=== PATIENT | female | born 1990 | race Caucasian/White ===

== ENCOUNTER 2017-08-26 16:57 | Emergency (ER) | payer OTHER ==
[~2017-08-26] VITALS: Ht 162.6 cm; Wt 97.5 kg
[~2017-08-26 16:57] MED LIST: AMOX1TAB12 PO; CORTEF20 MG PO; INTESTINEX1 CA1 PO; PROVENTIL S1 ML/5 MG; XOPENEX HFA15 GM IH; ZANTAC150 M3 PO
== END 2017-08-26 21:34 | disposition home or self-care (01) ==
LOC: ER 16:57
DX: L02.415 Cutaneous abscess of right lower limb (principal)

== ENCOUNTER 2017-08-28 08:28 | Emergency (ER) | payer OTHER ==
[~2017-08-28] VITALS: Ht 162.6 cm; Wt 95.3 kg
== END 2017-08-28 15:53 | disposition home or self-care (01) ==
LOC: ER 08:28
DX: K52.9 Noninfective gastroenteritis and colitis, unspecified (principal)

== ENCOUNTER 2019-12-11 18:30 | Emergency (ER) | payer OTHER ==
[~2019-12-11] VITALS: Ht 162.6 cm; Wt 97.5 kg
== END 2019-12-11 21:33 | disposition home or self-care (01) ==
LOC: ER 18:30
DX: N39.0 Urinary tract infection, site not specified (principal); Z03.818 Encounter for observation for suspected exposure to other biological agents ruled out

== ENCOUNTER 2022-01-10 00:32 | Emergency (ER) | payer OTHER ==
[~2022-01-10] VITALS: Ht 162.6 cm; Wt 97.5 kg
== END 2022-01-10 09:55 | disposition home or self-care (01) ==
LOC: ER 00:32
DX: N20.1 Calculus of ureter (principal); Z87.442 Personal history of urinary calculi; N39.0 Urinary tract infection, site not specified; Z88.2 Allergy status to sulfonamides